=== PATIENT | female | born 1970 | race African-American/Black ===

== ENCOUNTER 2020-10-28 07:41 | Emergency (ER) | payer MEDICAID ==
[~2020-10-28] VITALS: Ht 160 cm; Wt 105.0 kg
[2020-10-28] MEDS ORDERED: KETOROLAC 60MG/2ML VIAL IM ONE (08:15)
[2020-10-28] MEDS ORDERED: IBUP-2029 MT (08:30)
[2020-10-28 09:18] VITALS: BP 129/88
== END 2020-10-28 09:19 | disposition home or self-care (01) ==
LOC: ER 07:41
DX: M25.562 Pain in left knee (principal)
CPT/HCPCS: 73562; 81025; 96372; 99283; J1885; Z7610

== ENCOUNTER 2023-04-28 15:31 | Emergency (ER) | payer MEDICAID ==
[~2023-04-28] VITALS: Ht 167.6 cm; Wt 113.0 kg
[~2023-04-28 15:31] MED LIST: IBUP-2029 MT
[2023-04-28 15:50] VITALS: BP 200/119; PULSE 60; RESP 20; TEMP 98.8; O2SAT 100
[2023-04-28] MEDS ORDERED: KETOROLAC 60MG/2ML VIAL IM ONE (17:00)
[2023-04-28 17:26] LABS: BASOPHILS % 0.3 % (0.0-2.0); EOSINOPHILS % 0.9 % (0.0-5.0); HEMATOCRIT. 40.2 % (36.0-48.0); HEMOGLOBIN. 13.3 g/dL (12.0-16.0); LYMPHOCYTES % 51.9 % (20.0-50.0); MEAN CORPUSCULAR HEMOGLOBIN 31.2 pg (28.0-32.0); MEAN CORPUSCULAR HGB CONC 32.9 g/dL (31.0-37.0); MEAN CORPUSCULAR VOLUME 94.6 fL (81.0-99.0); MEAN PLATELET VOLUME 7.3 fl (7.4-10.4); MONOCYTES % 8.2 % (2.0-8.0); NEUTROPHILS % 38.7 % (40.0-76.0); PLATELET 301 x1000/uL (130-400); RED BLOOD CELL COUNT 4.25 mill/uL (4.2-5.4); RED CELL DISTRIBUTION WIDTH 13.4 % (11.6-14.6)
[2023-04-28 17:34] LABS: CHLORIDE 107 mEq/L (98-107); INDEX HEMOLYSI 1 (1-3); INDEX ICTERIC 1 (1-4); INDEX LIPEMIC 1 (1-3); POTASSIUM 3.5 mEq/L (3.5-5.1); SODIUM 140 mEq/L (136-145)
[2023-04-28 17:42] LABS: ALANINE AMINOTRANSFERASE 23 IU/L (13-61); ALBUMIN 3.5 g/dL (3.4-5.0); ASPARTATE AMINOTRANSFERASE 19 IU/L (15-37); BILIRUBIN TOTAL 0.4 mg/dL (0.1-1.0); CARBON DIOXIDE 27 mEq/L (21-32); CREATININE 0.6 mg/dL (0.6-1.3); GLUCOSE 97 mg/dL (70-105); PROTEIN TOTAL 8.6 g/dL (6.0-8.3); UREA NITROGEN BLOOD 12 mg/dL (7-21)
[2023-04-28] MEDS ORDERED: IBUP-2030 MT (17:50)
== END 2023-04-28 21:38 | disposition left against medical advice (07) ==
LOC: ER 15:31
DX: M25.511 Pain in right shoulder (principal); I10 Essential (primary) hypertension
CPT/HCPCS: 36415; 73030; 80053; 85025; 99284; A4565